=== PATIENT | female | born 2000 | race Two or more races ===

== ENCOUNTER 2025-04-02 19:01 | Emergency (ER) | payer BC, SELFPAY ==
[2025-04-02 19:20] VITALS: BP 119/58; PULSE 98; RESP 16; TEMP 36.9; O2SAT 97; BMI 37.5
[2025-04-02 19:36] LABS: MANUAL DIFF FLAG NO
[2025-04-02 19:44] LABS: Hematocrit 36.8 % (37.0-47.0); Hemoglobin 13.0 g/dl (12.0-16.0); Imm Gran Abs Auto 0.05 X10*3/uL (0.00-0.03); Imm Gran Pct Auto 0.4 % (0.0-0.4); Lymphocytes Absolute Auto 1.3 X10*3/uL (1.2-4.9); Mean Corpuscular HGB Conc 35.3 g/dl (31.0-35.0); Mean Corpuscular Hemoglobin 30.7 pg (27.0-33.0); Mean Corpuscular Volume 86.8 fL (80.0-98.0); NRBC Abs Auto 0.000 X10*3/uL (0.0-0.012); NRBC Pct Auto 0.0 /100WBC (0.0-0.2); Platelet Count 296 X10*3/uL (160-400); Red Blood Count 4.24 X10*6/uL (4.20-5.50); White Blood Count 11.5 X10*3/uL (4.8-10.8)
[2025-04-02 19:57] LABS: Alanine Aminotransferase 19 U/L (0-31); Albumin Level 3.6 g/dL (3.5-5.0); Alkaline Phosphatase 78 U/L (39-117); Anion Gap 13 (12-20); Aspartate Amino Transferase 22 U/L (5-31); Blood Urea Nitrogen 6 mg/dL (9-16); Calcium 8.4 mg/dL (8.4-10.2); Carbon Dioxide 19 mmol/L (22-29); Chloride 109 mmol/L (96-108); Creatinine Clr Calc Pharmacy 168.8; Estimated Glomerular Filt Rate > 60; Lipase 16 U/L (8-78); Magnesium 2.0 mg/dL (1.6-2.6); Potassium 3.6 mmol/L (3.3-5.1); Sodium 137 mmol/L (135-145); Total Protein 7.2 g/dL (6.5-8.0)
[2025-04-02 21:09] LABS: Resp Syncy Virus RNA Qual PCR NEGATIVE (Negative); SARS COV2 PCR INHOUSE NEGATIVE (Negative)
[2025-04-02 21:18] VITALS: BP 117/63; PULSE 74; RESP 16; TEMP 36.7; O2SAT 98
--- NOTE | 2025-04-02 21:22 | ED.NAVMDI ---
HPI - Nausea/Vomiting/Diarrhea General Chief complaint: Nausea/Vomiting/Diarrhea Stated complaint: vomiting - Time Seen by Provider: 04/02/25 20:08 Source: patient Limitations: no limitations History of Present Illness ED Provider: Fitz Kim PA-C HPI Narrative: 24 year old female with pmhx of asthma who is currently 20 weeks , , who presents to the ED for nausea, vomiting, and diarrhea. She reports she started feeling nauseous around 11PM last night. She reports vomiting and diarrhea that began this morning. Denies blood in vomit or stool. She has been unable to tolerate liquids or solids today. She did not check her temperature but did feel hot last night. Denies body aches/chills. Denies recent travel or sick contacts. Denies eating undercooked foods. Denies pain, headaches, dizziness. Denies recent hospitalization or use of antibiotics. No pelvic pain, no abdominal pain, no vaginal bleeding. Associated nausea: Yes Related Data Previous Rx's ?Medication ?Instructions ?Recorded ondansetron 4 mg disintegrating 4 mg PO Q8H PRN nausea and 04/02/25 tablet vomiting #10 tabs Allergies Allergy/AdvReac Type Severity Reaction Status Date / Time No Known Allergies Allergy Verified 04/02/25 19:23 Review of Systems Review of Systems: Yes all other systems are reviewed and are negative Constitutional: Constitutional: Denies fatigue, Denies fever(s) and Reports malaise Cardiovascular: Cardiovascular: Denies chest pain and Denies dyspnea Respiratory: Respiratory: Denies dyspnea Gastrointestinal: Gastrointestinal: Denies abdominal pain, Denies hematochezia, Denies coffee ground emesis, Reports diarrhea, Reports nausea and Reports vomiting Genitourinary: Genitourinary: Denies pelvic pain and Denies vaginal discharge Endocrine: Endocrine: Denies fatigue PMFSH Past Medical History Attestation statement: The following information was validated with the patient. Social History Social History Advance Directives: No Advance Directives Information Provided: No Do you have a plan to hurt others: No Plan Physical Exam Vital Signs: Vital Signs: Last Vital Signs Temp 98.0 F 04/02/25 21:18 Pulse 74 04/02/25 21:18 Resp 16 04/02/25 21:18 BP 117/63 04/02/25 21:18 Pulse Ox 98 04/02/25 21:18 O2 Del Method Room Air 04/02/25 21:18 BMI result Body Mass Index 37.5 Const: Other: Alert well-appearing Orientation/consciousness: patient oriented x3 Resp: Effort & Inspection: normal respiratory effort Cardio: Other: Normal peripheral perfusion GI: Other: Abdomen is soft, nontender nondistended no guarding Skin: Other: Warm dry no rash Neuro: General: patient oriented x3, gait normal, no focal motor deficits and CN's II-XI intact bilaterally Psych: Other: Cooperative Course Reevaluation(s) Reevaluation #1: Patient's symptoms are much improved, she is eager for discharge Time: 22:08 Medications Administered Discontinued Medications Generic Name Dose Route Start Last Admin Trade Name Freq PRN Reason Stop Dose Admin Sodium Chloride 1,000 mls @ 999 mls/hr 04/02/25 20:15 04/02/25 21:56 Ns IV 04/02/25 21:15 Infused .Q1H1M BOB Infusion Ondansetron HCl 4 mg 04/02/25 20:08 04/02/25 20:35 Ondansetron Hcl 4 Mg/2 Ml Vial IVPUSH 04/02/25 20:09 4 mg ONCE ONE Administration Pyridoxine HCl 50 mg 04/02/25 20:08 04/02/25 20:35 Pyridoxine Hcl (Vitamin B6) 50 Mg Tablet PO 04/02/25 20:09 50 mg ONCE ONE Administration Medical Decision Making Medical Decision Making MDM Narrative: 24 year old female with pmhx of asthma who is currently 20 weeks , , who presents to the ED for nausea, vomiting, and diarrhea. She reports she started feeling nauseous around 11PM last night. She reports vomiting and diarrhea that began this morning. Denies blood in vomit or stool. She has been unable to tolerate liquids or solids today. She did not check her temperature but did feel hot last night. Denies body aches/chills. Denies recent travel or sick contacts. Denies eating undercooked foods. Denies pain, headaches, dizziness. Denies recent hospitalization or use of antibiotics. No pelvic pain, no abdominal pain, no vaginal bleeding. No chronic issues History: Per patient I have considered the following differential diagnoses: Traveler's diarrhea, C diff, viral gastroenteritis, diverticulitis, colitis Plan: Patient here with likely viral gastroenteritis. She has no risk factors for traveler's diarrhea or C diff. She also has no abdominal pain to suggest colitis or diverticulitis. heart rate 145. Screening labs were overall unremarkable, giving IV fluid, B6 and Zofran. Adding a viral panel I have independently reviewed the following tests: Labs: Slight leukocytosis, not anemic, no electrolyte abnormality, serum quant 2773, viral panel neg Lab Data 04/02/25 19:32 04/02/25 19:32 Labs: Lab Results 04/02/25 04/02/25 Range/Units 19:32 20:26 WBC 11.5 H (4.8-10.8) X10*3/uL RBC 4.24 (4.20-5.50) X10*6/uL Hgb 13.0 (12.0-16.0) g/dl Hct 36.8 L (37.0-47.0) % MCV 86.8 (80.0-98.0) fL MCH 30.7 (27.0-33.0) pg MCHC 35.3 H (31.0-35.0) g/dl RDW 13.9 (11.0-16.0) % Plt Count 296 (160-400) X10*3/uL MPV 9.1 L (9.4-12.3) fL Immature Gran % (Auto) 0.4 (0.0-0.4) % Neut % (Auto) 81.7 H (45-73) % Lymph % (Auto) 11.1 L (20-40) % Humphreys % (Auto) 6.3 (2-11) % Eos % (Auto) 0.3 (0-4) % Baso % (Auto) 0.2 (0-2) % Lymph # (Auto) 1.3 (1.2-4.9) X10*3/uL Humphreys # (Auto) 0.7 (0.1-1.2) X10*3/uL Eos # (Auto) 0.0 (0.0-0.4) X10*3/uL Baso # (Auto) 0.0 (0.0-0.2) X10*3/uL Abs Immat Gran (auto) 0.05 H (0.00-0.03) X10*3/uL Absolute Neuts (auto) 9.4 H (2.0-8.3) x10*3/uL Absolute Nucleated RBC 0.000 (0.0-0.012) X10*3/uL Nucleated RBC % (auto) 0.0 (0.0-0.2) /100WBC Sodium 137 (135-145) mmol/L Potassium 3.6 (3.3-5.1) mmol/L Chloride 109 H (96-108) mmol/L Carbon Dioxide 19 L (22-29) mmol/L Anion Gap 13 (12-20) BUN 6 L (9-16) mg/dL Creatinine 0.55 (0.5-1.4) mg/dL Estim Creat Clear Calc 168.8 Estimated GFR > 60 Random Glucose 94 (60-115) mg/dL Calcium 8.4 (8.4-10.2) mg/dL Magnesium 2.0 (1.6-2.6) mg/dL Total Bilirubin 0.4 (0.0-1.0) mg/dL AST 22 (5-31) U/L ALT 19 (0-31) U/L Alkaline Phosphatase 78 (39-117) U/L Total Protein 7.2 (6.5-8.0) g/dL Albumin 3.6 (3.5-5.0) g/dL Lipase 16 (8-78) U/L Beta HCG, Quant 2773 mIU/mL Influenza Type A (PCR) NEGATIVE (Negative) Influenza Type B (PCR) NEGATIVE (Negative) RSV RNA Qual (PCR) NEGATIVE (Negative) SARS-CoV-2 RNA (RT-PCR) NEGATIVE (Negative) Discharge Plan Discharge Clinical Impression: 20 weeks gestation of , Viral gastroenteritis Patient Disposition: Home, Self-Care Instructions: Gastroenteritis (ED), at 19 to 22 Weeks (ED) Additional Instructions: All of your screening labs were normal including a viral panel, you were screened for influenza RSV and COVID. You are being treated for suspect viral gastroenteritis. See home care instructions. Uses Zofran as needed for nausea. You can purchase [id number] B6, it acts as an antinausea medication. Follow up with your primary care as needed. Prescriptions: New ondansetron 4 mg tablet,disintegrating 4 mg PO Q8H PRN (Reason: nausea and vomiting) Qty: 10 0RF Print Language: Com[place]an
[2025-04-02 22:33] VITALS: BP 112/68; PULSE 85; RESP 16; TEMP 36.5; O2SAT 95
== END 2025-04-02 22:34 | disposition home or self-care (01) ==
PROVIDERS: Physician Assistant Medical; Emergency Provider Emergency Medicine
DX: O99.612 Diseases of the digestive system complicating pregnancy, second trimester (principal); K52.9 Noninfective gastroenteritis and colitis, unspecified; Z3A.20 20 weeks gestation of pregnancy; Z03.818 Encounter for observation for suspected exposure to other biological agents ruled out
CPT/HCPCS: 36415; 80053; 83690; 83735; 84702; 85025; 87637; 96361; 96374; 99284; J2405